=== PATIENT | male | born 1995 | race Two or more races ===

== ENCOUNTER 2020-07-18 13:00 | Emergency (ER) | payer OTHER ==
[~2020-07-18] VITALS: Ht 172.7 cm; Wt 102.1 kg
[2020-07-18 14:35] VITALS: BP 131/80
== END 2020-07-18 16:02 | disposition home or self-care (01) ==
LOC: ER 13:00
DX: J06.9 Acute upper respiratory infection, unspecified (principal); Z20.822 Contact with and (suspected) exposure to COVID-19; Z87.891 Personal history of nicotine dependence
CPT/HCPCS: 36415; 71045; 87426